=== PATIENT | male | born 1990 | race Caucasian/White ===

== ENCOUNTER 2018-01-04 09:58 | Emergency (ER) | payer SELFPAY ==
[~2018-01-04] VITALS: Ht 182.9 cm; Wt 81.6 kg
[2018-01-04] MEDS ORDERED: TYLENOL WITH C1 EACH PO (10:44)
[2018-01-04] MEDS ORDERED: ANUSOL-HC25 MG RC (10:44)
== END 2018-01-04 11:27 | disposition home or self-care (01) ==
LOC: ER 09:58
DX: K64.8 Other hemorrhoids (principal)
CPT/HCPCS: 99282